=== PATIENT | male | born 1970 | race Caucasian/White ===

== ENCOUNTER 2018-06-09 20:11 | Emergency (ER) | payer BC ==
[2018-06-09] MEDS ORDERED: ACETAMINOPHEN 500 MG TAB PO (21:44)
== END 2018-06-09 22:09 | disposition left against medical advice (07) ==
LOC: E/R 20:11
DX: S39.91XA Unspecified injury of abdomen, initial encounter (principal); F17.210 Nicotine dependence, cigarettes, uncomplicated; S39.92XA Unspecified injury of lower back, initial encounter; W20.8XXA Other cause of strike by thrown, projected or falling object, initial encounter; Y92.9 Unspecified place or not applicable
CPT/HCPCS: 99282